=== PATIENT | male | born 1960 | race Caucasian/White ===

== ENCOUNTER 2022-08-07 09:44 | Emergency (ER) | payer OTHER, SELFPAY ==
[2022-08-07] VITALS (9 sets, daily range): BP systolic 128–184; BP diastolic 78–103; PULSE 60–70; RESP 20; TEMP 36.5; O2SAT 94–97; BMI 36.4
--- NOTE | 2022-08-07 12:38 | ED.WOUNDLAC ---
HPI - Wound/Laceration <Anoop Biswas PA-C - Last Filed: 08/07/22 12:45> General Chief Complaint: Wound/Laceration Stated Complaint: hit head Time Seen by Provider: 08/07/22 12:18 Source: patient Mode of arrival: Family Vehicle History of Present Illness HPI narrative: 62-year-old male presents to the ED status post a head injury sustained just prior to arrival. Patient said he walked into an auger by accident, striking the top of his head. Patient is not on blood thinners. Patient denies loss of consciousness. Patient endorses some tenderness at the site of the injury. Patient denies generally headache, vision changes, nausea, vomiting, chest pain, shortness of breath. Patient states that the laceration did bleed initially, but responded well to pressure. Tetanus is up-to-date. Related Data Allergies Allergy/AdvReac Type Severity Reaction Status Date / Time No Known Drug Allergies Allergy Verified 08/07/22 10:13 Review of Systems <Anoop Biswas PA-C - Last Filed: 08/07/22 12:45> Review of Systems ROS Unobtainable: All systems reviewed & are unremarkable except as noted in HPI and below Constitutional Constitutional: Denies chills, Denies fatigue, Denies fever(s), Denies frequent falls, Denies lethargy and Denies weakness Eyes Eyes: Denies change in vision, Denies eye discharge, Denies irritation and Denies loss of vision ENT Ears, Nose, Mouth, and Throat: Denies change in voice, Denies dizziness, Denies neck pain, Denies sore throat and Denies throat swelling Cardiovascular Cardiovascular: Denies chest pain, Denies irregular heart rhythm, Denies lightheadedness, Denies palpitations, Denies dyspnea, Denies dyspnea on exertion and Denies orthopnea Respiratory Respiratory: Denies cough, Denies dyspnea, Denies dyspnea on exertion and Denies wheezing Gastrointestinal Gastrointestinal: Denies abdominal pain, Denies change in bowel habits, Denies diarrhea, Denies nausea and Denies vomiting Genitourinary Genitourinary: Denies hematuria, Denies flank pain, Denies urinary incontinence and Denies urinary urgency Musculoskeletal Musculoskeletal: Denies back pain, Denies muscle weakness, Denies neck pain, Denies numbness and Denies tingling Integumentary/Breasts Skin/Breast: Denies pruritus, Denies erythema, Denies rash and Denies wounds Comments: Head laceration Neurologic Neurologic: Denies behavioral changes, Denies confusion, Denies dizziness, Denies frequent falls, Denies loss of vision, Denies numbness, Denies tingling and Denies weakness Psychiatric Psychiatric: Denies anxiety, Denies behavioral changes, Denies confusion, Denies depression, Denies homicidal ideation and Denies suicidal ideation Endocrine Endocrine: Denies fatigue, Denies flushing and Denies palpitations Hematologic/Lymphatic Hematologic/Lymphatic: Denies easy bruising Allergic/Immunologic Allergic/Immunologic: Denies urticaria, Denies throat swelling and Denies wheezing Patient History <Anoop Biswas PA-C - Last Filed: 08/07/22 12:45> Social History Smoking Status: Never smoker Smoking Status: Never smoker alcohol intake frequency: 0-2 drinks per day Alcohol type: hard liquor Substance Use Type: does not use Exam <Anoop Biswas PA-C - Last Filed: 08/07/22 12:45> Narrative Exam Narrative: Const General:?cooperative, healthy appearing and comfortable [facility] Head:? There is a 3 cm shallow linear laceration to the top of the head. No skull depressions, hematoma. Bleeding is controlled with pressure Ears:?hearing grossly normal bilaterally Nose:?external nose normal Face and sinus:?normal facial exam and sinuses nontender Mouth:?oral mucosae normal Throat:?posterior oropharynx normal Eyes General:?appearance normal, both eyes and all related structures Neck Neck:?normal visual inspection and no lymphadenopathy noted Resp Effort & Inspection:?normal respiratory effort Auscultation:?clear to auscultation bilaterally Cardio Rate:?regular rate Rhythm:?regular rhythm Neuro General:?patient alert, patient awake and patient oriented x3 Initial Vital Signs Initial Vital Signs: Vital Signs Pulse Oximetry 94 08/07/22 10:07 <Angela Fraser DO - Last Filed: 08/07/22 18:50> Initial Vital Signs Initial Vital Signs: Vital Signs Pulse Oximetry 94 08/07/22 10:07 Procedures <Anoop Biswas PA-C - Last Filed: 08/07/22 12:45> Laceration Repair Laceration 1: Site: scalp Size (cm): 3 Description: linear Depth: simple, single layer Pre-repair: irrigated extensively and deep structures intact Skin layer closed with: other (hair apposition and dermabond) Course <Anoop Biswas PA-C - Last Filed: 08/07/22 12:45> Vital Signs Vital signs: Vital Signs - 8 hr 08/07/22 11:00 08/07/22 11:00 08/07/22 11:30 Pulse Rate 64 Blood Pressure 139/78 132/79 Pulse Oximetry 95 Oxygen Delivery Method Room Air 08/07/22 11:30 08/07/22 12:00 08/07/22 12:00 Pulse Rate 65 64 Blood Pressure 128/80 Pulse Oximetry 96 97 Oxygen Delivery Method Room Air 08/07/22 12:30 Pulse Rate 60 Blood Pressure Pulse Oximetry 97 Oxygen Delivery Method Room Air <Angela Fraser DO - Last Filed: 08/07/22 18:50> Vital Signs Vital signs: Vital Signs - 8 hr 08/07/22 11:00 08/07/22 11:00 08/07/22 11:30 Pulse Rate 64 Blood Pressure 139/78 132/79 Pulse Oximetry 95 Oxygen Delivery Method Room Air 08/07/22 11:30 08/07/22 12:00 08/07/22 12:00 Pulse Rate 65 64 Blood Pressure 128/80 Pulse Oximetry 96 97 Oxygen Delivery Method Room Air 08/07/22 12:30 Pulse Rate 60 Blood Pressure Pulse Oximetry 97 Oxygen Delivery Method Room Air MDM - Wound/Laceration <Anoop Biswas PA-C - Last Filed: 08/07/22 12:45> MDM Narrative Medical decision making narrative: 62-year-old male presents to the ED status post a head injury sustained just prior to arrival. On physical exam, the shallow 3 cm laceration, bleeding is controlled with pressure. Laceration was repaired with her apposition and glue. Discussed wound care and signs of infection with patient. Patient verbalized understanding and agrees to return to the ED if he has any signs of infection, is persistently vomiting, is confused. Discharge Plan Departure Patient Disposition: Home Clinical Impression: Laceration Instructions: DI for Laceration Repair Activity Restrictions/Additional Instructions: Were evaluated in the ED today for a head injury. Your laceration was cleaned and repaired with glue. The glue will fall out on its own. Please watch for signs of infection including worsening redness, pain, warmth, swelling, discharge. Return to the ED if you note any signs of infection. Please follow-up with your PCP as soon as possible. Referrals: Floyd Keen DO [Primary Care Provider] - Stand Alone Forms: Patient Portal/API, Work Release Note <Angela Frsaer DO - Last Filed: 08/07/22 18:50> Cosign ED Attending Cosignature Attestation: I was immediately available in the department for consultation. Documentation has been reviewed.
== END 2022-08-07 12:53 | disposition home or self-care (01) ==
PROVIDERS: Emergency Provider Student in an Organized Health Care Education/Training Program; PCP Student in an Organized Health Care Education/Training Program
DX: S01.01XA Laceration without foreign body of scalp, initial encounter (principal); W22.8XXA Striking against or struck by other objects, initial encounter
CPT/HCPCS: 99283